=== PATIENT | male | born 1965 | race Caucasian/White ===

== ENCOUNTER 2021-05-15 08:30 | Emergency (ER) | payer BC ==
[2021-05-15 08:38] VITALS: BP 153/81; PULSE 72; TEMP 97.8; BMI 33.5
== END 2021-05-15 09:15 | disposition home or self-care (01) ==
LOC: JERFT 08:30
DX: Z48.00 Encounter for change or removal of nonsurgical wound dressing (principal)
CPT/HCPCS: 99281-25

== ENCOUNTER 2024-08-03 04:22 | Day surgery (SDC) | payer BC ==
[2024-08-02 11:27] VITALS: BMI 32.6
[2024-08-03 09:14] VITALS: TEMP 98
[2024-08-03 10:03] VITALS: BP 128/70; PULSE 68; RESP 16
== END 2024-08-03 09:56 | disposition home or self-care (01) ==
LOC: JASU-ENDO 04:22
PROVIDERS: ATTEND Internal Medicine Gastroenterology
PROC: 0DBB8ZX Excision of Ileum, Via Natural or Artificial Opening Endoscopic, Diagnostic (ICD-10-PCS; 2024-08-03)
PROC: 0DBM8ZX Excision of Descending Colon, Via Natural or Artificial Opening Endoscopic, Diagnostic (ICD-10-PCS; 2024-08-03)
PROC: 0DBH8ZX Excision of Cecum, Via Natural or Artificial Opening Endoscopic, Diagnostic (ICD-10-PCS; principal; 2024-08-03 09:00)
DX: Z12.11 Encounter for screening for malignant neoplasm of colon (principal); D12.4 Benign neoplasm of descending colon; K64.8 Other hemorrhoids; K57.30 Diverticulosis of large intestine without perforation or abscess without bleeding; Z86.010 Personal history of colon polyps
CPT/HCPCS: 88305-TC

== ENCOUNTER 2024-11-15 04:39 | Day surgery (SDC) | payer BC ==
[2024-11-14 11:23] VITALS: BMI 33.5
[2024-11-15 09:17] VITALS: TEMP 97.5
[2024-11-15 09:55] VITALS: BP 111/77; PULSE 69; RESP 15
== END 2024-11-15 09:51 | disposition home or self-care (01) ==
LOC: JASU-ENDO 04:39
PROVIDERS: ATTEND Internal Medicine Gastroenterology
PROC: 0DB78ZX Excision of Stomach, Pylorus, Via Natural or Artificial Opening Endoscopic, Diagnostic (ICD-10-PCS; 2024-11-15)
PROC: 0DB68ZX Excision of Stomach, Via Natural or Artificial Opening Endoscopic, Diagnostic (ICD-10-PCS; 2024-11-15)
PROC: 0DB28ZX Excision of Middle Esophagus, Via Natural or Artificial Opening Endoscopic, Diagnostic (ICD-10-PCS; 2024-11-15)
PROC: 0DB38ZX Excision of Lower Esophagus, Via Natural or Artificial Opening Endoscopic, Diagnostic (ICD-10-PCS; 2024-11-15)
PROC: 0DB98ZX Excision of Duodenum, Via Natural or Artificial Opening Endoscopic, Diagnostic (ICD-10-PCS; principal; 2024-11-15 09:00)
DX: K21.00 Gastro-esophageal reflux disease with esophagitis, without bleeding (principal); K44.9 Diaphragmatic hernia without obstruction or gangrene; K29.50 Unspecified chronic gastritis without bleeding
CPT/HCPCS: 82962; 88305-TC; 88342-TC